=== PATIENT | female | born 1985 | race Caucasian/White ===

== ENCOUNTER 2019-01-10 10:25 | Emergency (ER) | payer OTHER ==
[2019-01-10 10:56] LABS: Hemoglobin 10.7 g/dL (12.0-16.0); Mean Corpuscular HGB CONC 32.3 g/dL (32.0-36.0); Mean Corpuscular Hemoglobin 23.4 pg (27.0-31.0); Mean Corpuscular Volume 72.5 fL (78.0-98.0); Mean Platelet Volume 8.5 fL (7.4-10.4); Platelet Count 263 thou/uL (130-400); RBC Distribution Width 16.4 % (11.5-14.5); Red Blood Cell (RBC) Count 4.58 mill/uL (4.20-5.40); White Blood Cell (WBC) Count 12.6 thou/uL (4.8-10.8)
[2019-01-10 11:13] LABS: #Basophils 0.1 thou/uL (0.0-0.2); #Eosinphils 0.3 thou/uL (0.0-0.7); #Lymphocytes 1.8 thou/uL (1.20-3.40); #Monocytes 0.9 thou/uL (0.11-0.59); #Neutrophils 9.5 thou/uL (1.40-6.50); %Basophils 0.6 % (0.0-1.0); %Eosinophils 2.4 % (0.0-10.0); %Lymphocytes 14.6 % (21.0-51.0); %Monocytes 7.4 % (0.0-10.0); ALT (SGPT) 8 U/L (8-55); AST (SGOT) 11 U/L (5-34); Albumin 3.7 g/dL (3.5-5.0); Alkaline Phosphatase 117 U/L (40-110); Anion Gap 13 mmol/L (10-20); BUN (Urea Nitrogen) 8 mg/dL (7.0-18.7); Bilirubin, Total 0.3 mg/dL (0.2-1.2); Calc. Creatinine Clearance 0 mL/min (70-130); Carbon Dioxide 25 mmol/L (22-29); Chloride 102 mmol/L (98-107); Estimated GFR-MDRD Greater than 90; Globulin 3.3 g/dL (2.4-3.5); Glucose 87 mg/dL (70-105); Large Platelets SLIGHT; Lipase 38 U/L (8-78); MDiff Complete? YES; Platelet Morphology Comment Appears Adequate; Potassium 3.8 mmol/L (3.5-5.1); Sodium 136 mmol/L (136-145)
[2019-01-10 11:23] LABS: Bilirubin Negative (Negative); Blood, Urine Negative (Negative); Clarity Clear (Clear); Glucose, Urine (Dipstick) Negative (Negative); Leukocyte Small (Negative); Nitrite Negative (Negative); Protein, Urine (Dipstick) Negative (Neg-Trace); Urobilinogen 0.2 mg/dL (Less than 2)
[2019-01-10 11:31] LABS: RBC/HPF 0-3 HPF (0-3)
[2019-01-10 11:32] LABS: Bacteria/HPF 1+ HPF (None Seen); Squamous Epithelial 0-3 HPF (0-3)
== END 2019-01-10 12:13 | disposition home or self-care (01) ==
LOC: ERS 10:25
DX: O99.89 Other specified diseases and conditions complicating pregnancy, childbirth and the puerperium (principal); R10.13 Epigastric pain; O99.343 Other mental disorders complicating pregnancy, third trimester; F41.9 Anxiety disorder, unspecified; Z79.84 Long term (current) use of oral hypoglycemic drugs; Z79.899 Other long term (current) drug therapy; Z3A.35 35 weeks gestation of pregnancy
CPT/HCPCS: 36415; 80053; 81003; 81015; 83690; 85025; 93005

== ENCOUNTER 2019-02-01 09:52 | Inpatient (IN) | payer OTHER ==
--- NOTE | 2019-02-01 00:52 | PDOC.LDHP ---
Labor and Delivery H&P Chief complaint: scheduled section HPI: 33 y/o at 38 3/7 weeks, EDC 02/12/19, with hx of PTL with , Suspected cervical incompetence with subsequent abdominal cerclage placement, AMA, Chronic Hypertension, and GDM (1 hr GCT at 220) requiring Metformin. Current gestational age (weeks): 38 Due date: 02/12/19 Grav: 3 Para: 1 Current complications: gestational diabetes, hypertension Abnormal US findings: No Current medications: pre- vitamins Previous surgical history: low tranverse CS Social history: none - Physical Exam Vital signs reviewed and normal: yes General: NAD Heart: RRR Lungs: CTAB Abdomen: gravid Extremeties: no edema FHT: category 1 - Assessment L&D Assessment: scheduled repeat section - Plan Plan: admit to L&D, to OR for section
[2019-02-01] MEDS ORDERED: Lidocaine 1% (PF) 30 ML VIAL ONE (10:25)
[2019-02-01] MEDS: Lactated Ringer's 1,000 ML IV SCH ×2 (10:32→21:14)
[2019-02-01 10:39] VITALS: BMI 45.7
[2019-02-01] MEDS ORDERED: hydrALAZINE 20 MG/ML VIAL SLOW IVP PRN (10:49)
[2019-02-01] MEDS ORDERED: Ondansetron PF 4 MG/2 ML Vial IVP PRN ×2 (10:50→14:57)
[2019-02-01] MEDS ORDERED: Promethazine HCl 25 MG/ML VIAL IM PRN ×2 (10:51→14:57)
[2019-02-01] MEDS ORDERED: Bicitra 30 ML UDCUP PO SCH (11:00)
[2019-02-01] MEDS ORDERED: CEFAZOLIN 2 GM in Premix Bag 1 BAG IVPB SCH (11:00)
[2019-02-01 11:13] LABS: Hemoglobin 10.1 g/dL (12.0-16.0); Mean Corpuscular HGB CONC 32.1 g/dL (32.0-36.0); Mean Corpuscular Hemoglobin 22.5 pg (27.0-31.0); Mean Corpuscular Volume 69.9 fL (78.0-98.0); Mean Platelet Volume 9.9 fL (7.4-10.4); Platelet Count 234 thou/uL (130-400); Red Blood Cell (RBC) Count 4.49 mill/uL (4.20-5.40)
[2019-02-01] MEDS ORDERED: MORPHINE 5 MG/10 ML PF VIAL ONE (11:40)
[2019-02-01] MEDS ORDERED: Oxytocin 10 UNITS/ML VIAL ONE (11:41)
[2019-02-01] MEDS ORDERED: Ondansetron PF 4 MG/2 ML Vial ONE (11:41)
[2019-02-01 11:53] LABS: HBSAg Index 0.14 S/CO (0-0.99); Hep B Surf Ag Non-Reactive S/CO (NonReactive); Syphilis Antibody Nonreactive (Nonreactive); Syphilis Antibody Index 0.07 S/CO (<1.00 Non-Reactive)
[2019-02-01] MEDS ORDERED: ePHEDrine/0.9% NaCl/PF SYRINGE 50 mg/10 ml ONE (13:12)
[2019-02-01] MEDS ORDERED: Bicitra 30 ML UDCUP ONE (14:33)
[2019-02-01] MEDS ORDERED: Naloxone HCl 0.4 mg/ml Vial IV PRN (14:57)
[2019-02-01] MEDS ORDERED: Naloxone HCl 0.4 mg/ml Vial IVP PRN ×2 (14:57)
[2019-02-01] MEDS ORDERED: Ondansetron HCl/PF 4 MG/2 ML Vial IVP PRN (14:57)
[2019-02-01] MEDS ORDERED: Promethazine HCl 25 MG SUPP PR PRN (14:57)
[2019-02-01] MEDS ORDERED: L&D-Morphine 4 MG/ML VIAL SLOW IVP PRN (14:57)
[2019-02-01] MEDS ORDERED: Meperidine HCl/PF 25 MG/ML VIAL SLOW IVP PRN (14:57)
[2019-02-01] MEDS ORDERED: diphenhydrAMINE 50 MG/ML VIAL IVP PRN (14:57)
[2019-02-01] MEDS ORDERED: HYDROmorphone 2 MG/ML VIAL SLOW IVP PRN (14:57)
[2019-02-01] MEDS ORDERED: Communication Order-Pharmacy FS SCH (15:00)
[2019-02-01] MEDS ORDERED: Meperidine HCl/PF 25 MG/ML VIAL ONE (15:17)
[2019-02-01] MEDS ORDERED: NS / Oxytocin 40 units/1000ml 1,000 ML ONE (15:25)
[2019-02-01] MEDS ORDERED: Lidocaine 1% PF 5 ML VIAL SQ PRN (15:32)
[2019-02-01] MEDS ORDERED: Misoprostol 200 MCG TAB PR PRN (17:01)
[2019-02-01] MEDS ORDERED: Methylergonovine 0.2 MG/ML VIAL IM PRN (17:01)
[2019-02-01] MEDS ORDERED: Lanolin Ointment 7 GM TUBE TOP PRN (17:01)
[2019-02-01] MEDS ORDERED: Acetaminophen 325 MG TAB PO PRN (17:01)
[2019-02-01] MEDS ORDERED: Methylergonovine 0.2 MG TAB PO PRN (17:01)
[2019-02-01] MEDS ORDERED: Meperidine HCl/PF 25 MG/ML VIAL IM PRN (17:01)
[2019-02-01] MEDS: Ketorolac Tromethamine 30 MG/ML VIAL IVP PRN (19:58)
[2019-02-01] MEDS: Ketorolac Tromethamine 30 MG/ML VIAL IVP SCH (21:06)
[2019-02-01] MEDS: Simethicone Chewable 80 MG TAB PO PRN (21:14)
[2019-02-02] MEDS: diphenhydrAMINE 25 MG CAP PO PRN ×2 (00:23→22:41)
[2019-02-02] MEDS: Ketorolac Tromethamine 30 MG/ML VIAL IVP PRN (02:05)
[2019-02-02] MEDS ORDERED: HYDROcodone/Acetaminophen 5/325 mg Tablet PO PRN (03:00)
[2019-02-02 04:59] LABS: Hemoglobin 9.1 g/dL (12.0-16.0); Mean Corpuscular HGB CONC 31.6 g/dL (32.0-36.0); Mean Corpuscular Hemoglobin 22.2 pg (27.0-31.0); Mean Corpuscular Volume 70.4 fL (78.0-98.0); Mean Platelet Volume 9.7 fL (7.4-10.4); Platelet Count 220 thou/uL (130-400); Red Blood Cell (RBC) Count 4.11 mill/uL (4.20-5.40); White Blood Cell (WBC) Count 14.7 thou/uL (4.8-10.8)
[2019-02-02] MEDS: Lactated Ringer's 1,000 ML IV SCH ×3 (05:28→20:06)
[2019-02-02] MEDS: Prenatal Vitamin 1 TAB PO SCH (07:50)
[2019-02-02] MEDS: Ferrous Sulfate 325 MG TAB PO SCH ×2 (07:50→15:50)
[2019-02-02] MEDS: HYDROcodone/Acetaminophen 5/325 mg Tablet PO PRN ×5 (07:50→23:45)
[2019-02-02] MEDS: Simethicone Chewable 80 MG TAB PO PRN ×2 (07:52→15:13)
[2019-02-02] MEDS ORDERED: Adacel (T-DAP) 0.5 ML SYRINGE IM ONE (09:00)
[2019-02-02] MEDS: Ketorolac Tromethamine 30 MG/ML VIAL IVP SCH (14:09)
[2019-02-02] MEDS: Ibuprofen 800 MG TAB PO SCH ×2 (15:06→22:38)
--- NOTE | 2019-02-02 18:02 | PDOC.PP ---
Post Progress Note Post Day #: 1 PO intake tolerated: yes Flatus: yes Ambulation: yes Vital Signs (12 hours) Temp Pulse Resp BP Pulse Ox 02/02/19 15:07 98.4 F 132 H 20 119/76 02/02/19 12:01 98.7 F 116 H 18 122/73 02/02/19 08:00 100 02/02/19 07:56 98.3 F 120 H 16 126/79 100 Weight Weight 242 lb - Physical Examination General: NAD Cardiovascular: no m/r/g, RRR Respiratory: clear to auscultation bilaterally, non-labored breathing Abdominal: + bowel sounds, lochia, no distention Extremities: negative homans (B) Skin: CS incision dry & intact, no rash Neurological: no gross focal deficits Psychiatric: A&Ox3, normal affect Result Diagrams: 02/02/19 04:21 Additional Labs: Post Labs Blood Type B POSITIVE 02/01/19 11:31 Hep Bs Antigen Non-Reactive S/CO (NonReactive) 02/01/19 10:56
[2019-02-03] MEDS: Lactated Ringer's 1,000 ML IV SCH ×3 (05:09→21:42)
[2019-02-03] MEDS: Ibuprofen 800 MG TAB PO SCH ×3 (05:45→22:10)
[2019-02-03] MEDS: HYDROcodone/Acetaminophen 5/325 mg Tablet PO PRN ×5 (05:45→22:10)
[2019-02-03] MEDS: Simethicone Chewable 80 MG TAB PO PRN ×2 (05:45→10:13)
--- NOTE | 2019-02-03 05:58 | PDOC.PP ---
Post Progress Note Post Day #: 2 Subjective: States some right incision point tenderness, worse on ambulation PO intake tolerated: yes Flatus: yes Ambulation: yes Vital Signs (12 hours) Temp Pulse Resp BP Pulse Ox 02/03/19 05:45 97.9 F 107 H 18 130/79 02/02/19 23:48 97.7 F 105 H 18 132/73 02/02/19 19:35 98.5 F 114 H 18 120/77 95 Weight Weight 242 lb - Physical Examination General: NAD Abdominal: + bowel sounds, lochia, no distention, appropriately TTP Extremities: negative homans (B) Skin: CS incision dry & intact (Sutured...no evidence cellulitis or drainage. Palpation did not reproduce pain) Neurological: no gross focal deficits Psychiatric: A&Ox3, normal affect Result Diagrams: 02/02/19 04:21 Additional Labs: Post Labs Blood Type B POSITIVE 02/01/19 11:31 Hep Bs Antigen Non-Reactive S/CO (NonReactive) 02/01/19 10:56 (1) delivery delivered Code(s): O82 - ENCOUNTER FOR DELIVERY WITHOUT INDICATION Status: Acute - Assessment/Plan POD2 from repeat CS...without labor. I reviewed with her possibility of cutaneous nerve trapping with pfannestiel as a cause of point tenderness. Or, the sxs may be gas related if deeper internal. Explained that both will resolve...gas pains with passage of gas and ambuklation , and possible nerve kink with time. Patient desires to stay until tomorroww. Feels fine and requesting to go home today if possible Follow clinically today
[2019-02-03] MEDS: Prenatal Vitamin 1 TAB PO SCH (10:14)
[2019-02-03] MEDS: Ferrous Sulfate 325 MG TAB PO SCH ×2 (10:14→18:00)
[2019-02-03] MEDS ORDERED: Milk Of Magnesia 30 ML UDCUP PO PRN (13:22)
[2019-02-03] MEDS: Ketorolac Tromethamine 30 MG/ML VIAL IVP SCH (17:30)
[2019-02-03] MEDS: diphenhydrAMINE 25 MG CAP PO PRN (22:10)
[2019-02-04] MEDS: HYDROcodone/Acetaminophen 5/325 mg Tablet PO PRN ×3 (02:24→12:33)
[2019-02-04] MEDS: Lactated Ringer's 1,000 ML IV SCH ×2 (03:14→11:33)
[2019-02-04] MEDS: Simethicone Chewable 80 MG TAB PO PRN (06:19)
[2019-02-04] MEDS: Ibuprofen 800 MG TAB PO SCH ×2 (06:19→11:32)
[2019-02-04 08:20] VITALS: BP 145/84; TEMP 98.5
[2019-02-04] MEDS: Ferrous Sulfate 325 MG TAB PO SCH (09:09)
[2019-02-04] MEDS: Prenatal Vitamin 1 TAB PO SCH (09:09)
--- NOTE | 2019-02-04 09:36 | PDOC.PP ---
Post Progress Note Post Day #: 3 PO intake tolerated: yes Flatus: yes Ambulation: yes Vital Signs (12 hours) Temp Pulse Resp BP Pulse Ox 02/04/19 08:19 98.5 F 118 H 12 145/84 H 100 Weight Weight 242 lb - Physical Examination General: NAD Cardiovascular: no m/r/g, RRR Respiratory: clear to auscultation bilaterally, non-labored breathing Abdominal: + bowel sounds, lochia, no distention Extremities: negative homans (B) Skin: CS incision dry & intact, no rash Neurological: no gross focal deficits Psychiatric: A&Ox3, normal affect Result Diagrams: 02/02/19 04:21 Additional Labs: Post Labs Blood Type B POSITIVE 02/01/19 11:31 Hep Bs Antigen Non-Reactive S/CO (NonReactive) 02/01/19 10:56
--- NOTE | 2019-02-07 08:16 | DN ---
DATE OF PROCEDURE: 02/01/2019 TIME OF SERVICE: At 1233 hours, Central Standard Time. PREOPERATIVE DIAGNOSES: Intrauterine at 38 weeks and 3 days with a history of labor and subsequent abdominal cerclage placement, chronic hypertension, and morbid obesity, who presents for repeat low transverse section medically indicated at 38 weeks. POSTOPERATIVE DIAGNOSES: Intrauterine at 38 weeks and 3 days with a history of labor and subsequent abdominal cerclage placement, chronic hypertension, morbid obesity, and uterine fibroids, who presents for repeat low transverse section medically indicated at 38 weeks. PROCEDURES: 1. Repeat low transverse section. 2. Myomectomy removing 2 uterine fibroids, one anterior, one posterior. FINDINGS: Viable male weighing 3643 g or 8 pounds and 0 ounces. Apgars 8 and 9. QUANTITATIVE BLOOD LOSS: 611. COMPLICATIONS: None. DETAILS OF THE PROCEDURE: The patient was consented and taken back to the operating room where spinal anesthesia was found to be adequate. She was then prepped and draped in the normal sterile fashion. A timeout was performed by the entire operative team. The incision was then marked with a marking pen tested using sharp pickups. An incision was then made with a scalpel. The incision was carried through the adipose tissue down to the underlying rectus fascia using both sharp dissection as well as cautery. Once the fascia was identified, it was incised in the midline and then the fascial incision was carried through in both lateral directions using sharp as well as cautery dissection techniques. Next, the superior aspect of the rectus fascia was grasped with 2 Penny clamps, which was tented up and the rectus muscles were dissected off using blunt dissection as well as cautery dissection. Similarly, the inferior aspect of the fascial incision was grasped with 2 Penny clamps, tented up and the rectus muscles were dissected off bluntly as well as sharply. Next, the rectus muscles were in the midline and the peritoneum identified. The peritoneum was then carefully grasped with 2 hemostats and entered sharply. The peritoneal incision was extended superiorly and inferiorly and bladder blade was placed in the lower abdomen. At this point, the uterus was identified and the bladder flap was then developed using pickups with teeth as well as Metzenbaum scissors in both lateral directions. The bladder flap was then dissected downwards using the body press operator's finger as well as Metzenbaum scissors. The bladder blade was replaced. The lower uterine segment was then identified and entered sharply using a clean scalpel. The uterine incision was then dissected downwards until thin layer of muscle remained and this was entered bluntly using a hemostat to avoid any injury to the baby. The uterine incision was then stretched using two fingers in both lateral directions. An amniotomy was performed artificially using a hemostat and the baby was delivered using fundal pressure in a gentle fashion. Once out, the baby's mouth and nose were bulb suctioned, cord clamped and cut, and the baby was handed to waiting attendants. Next, the uterus was exteriorized, cleared of all clots and debris and the uterine incision was repaired with #1 Monocryl in a running locking fashion. A 2nd suture of the same type was used to obtain complete hemostasis at the uterine incision. The bladder flap was reapproximated using 3-0 Monocryl. Next, patient's left and right adnexa were inspected and appeared to be within normal limits. The posterior cul-de-sac was blotted dry and hemostasis assured. One more look at the uterine incision demonstrated hemostasis. Next, the uterus was replaced back within the abdomen. The peritoneum was reapproximated using 2-0 Monocryl without difficulty. The rectus muscles were then allowed to come back together and 0 chromic was used to aid in reapproximation of the muscle as necessary. The rectus fascia was then reapproximated in a running fashion using 0 Vicryl suture. The adipose tissue was then examined and appeared to be well approximated without any obvious separations. Finally, the skin was reapproximated with 3-0 Monocryl on a Prieto needle without difficulty and Dermabond adhesive was applied to the skin. Once the glue was dry, the drapes were removed and the patient was transferred to an ambulatory bed where she was taken to recovery awake and in stable condition. Sponge, lap, and needle counts were correct x3. ADDENDUM: Following closure of the uterus, inspection of the uterus revealed 2 sizable uterine lesions which were likely uterine fibroids, but a definitive diagnosis could not be made additionally. These were excised in their entirety and sent to pathology for permanent section. Both of these areas were closed with 2-0 chromic suture until hemostasis was assured, and the fact a myomectomy was performed removing 2 suspected uterine fibroids. Job ID: [id number]
== END 2019-02-04 12:40 | disposition home or self-care (01) | DRG 787 ==
LOC: L&D 09:52 → 3SW 17:35
PROVIDERS: ADMIT Obstetrics & Gynecology; ATTEND Obstetrics & Gynecology
PROC: 10D00Z1 Extraction of Products of Conception, Low, Open Approach (ICD-10-PCS; principal; 2019-02-01)
PROC: 0UB90ZZ Excision of Uterus, Open Approach (ICD-10-PCS; 2019-02-01)
DX: O34.211 Maternal care for low transverse scar from previous cesarean delivery (principal); O10.02 Pre-existing essential hypertension complicating childbirth; Z3A.38 38 weeks gestation of pregnancy; Z37.0 Single live birth; O24.425 Gestational diabetes mellitus in childbirth, controlled by oral hypoglycemic drugs; O34.13 Maternal care for benign tumor of corpus uteri, third trimester; D25.9 Leiomyoma of uterus, unspecified; E66.01 Morbid (severe) obesity due to excess calories; O99.214 Obesity complicating childbirth
CPT/HCPCS: 36415; 51702; 85027; 86780; 86850; 86900; 86901; 87340; 88305; J0690; J1885; J2001; J2175; J2274; J2405; J2590; Q0163

== ENCOUNTER 2022-11-14 12:32 | Outpatient (CLI) | payer BC | END 2022-11-14 12:33 | disposition home or self-care (01) | LOC: SCSRAD 12:32 | PROVIDERS: ATTEND Nurse Practitioner Family | DX: R50.9 Fever, unspecified (principal); J98.4 Other disorders of lung | CPT/HCPCS: 71046 ==

== ENCOUNTER 2022-11-19 11:46 | Outpatient (CLI) | payer BC | END 2022-11-19 11:47 | disposition home or self-care (01) | LOC: BICRAD 11:46 | PROVIDERS: ATTEND Nurse Practitioner Family | DX: J18.9 Pneumonia, unspecified organism (principal); R91.8 Other nonspecific abnormal finding of lung field | CPT/HCPCS: 71046 ==